=== PATIENT | male | born 1960 | race Caucasian/White ===

== ENCOUNTER 2017-06-19 10:03 | Emergency (ER) | payer BC, OTHER ==
--- NOTE | 2017-06-19 11:46 | UC ---
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, difficult to weight bear Employed by [email or web address] [place] - History of Current Complaint Chief Complaint: UCLowerExtremity Stated Complaint: LEG INJURY Time Seen by Provider: 06/19/17 11:38 Hx Obtained From: Patient Onset/Duration: Sudden Onset Severity Initially: Moderate Severity Currently: Moderate Pain Intensity: 6 Pain Scale Used: 0-10 Numeric Aggravating Factor(s): Standing, Ambulation Alleviating Factor(s): Rest, Elevation Able to Bear Weight: No Related History: Occupational Injury - Allergies/Home Medications Allergies/Adverse Reactions: Allergies Allergy/AdvReac Type Severity Reaction Status Date / Time No Known Allergies Allergy Verified 06/19/17 10:32 Home Medications: Home Medications Ascorbic Acid TAB* [Vitamin C TAB*] 06/19/17 [History] Multiple Vitamin [Multivitamins] 06/19/17 [History] Standard Process 06/19/17 [History] PMH/Surg Hx/FS Hx/Imm Hx Previously Healthy: No Endocrine History: Dyslipidemia - Surgical History Surgical History: Yes Surgery Procedure, Year, and Place: VISION REPAIR FOR DIPLOPIA, RESHAPED ORBIT. BLADDER SURGERY FOR STRICTURE - Family History Known Family History: Positive: Hypertension Negative: Diabetes - Social History Occupation: Employed Full-time Lives: With Family Alcohol Use: Occasionally Substance Use Type: None Smoking Status (MU): Never Smoked Tobacco - Immunization History Most Recent Influenza Vaccination: 2014 Most Recent Tetanus Shot: 2007 Most Recent Pneumonia Vaccination: 6 y/a approximately Review of Systems Constitutional: Negative Skin: Negative Eyes: Negative ENT: Negative Respiratory: Negative Cardiovascular: Negative Gastrointestinal: Negative Genitourinary: Negative Motor: Negative Neurovascular: Negative Musculoskeletal: Negative, Myalgia - upper left calf after alteracation Neurological: Negative Psychological: Negative Is Patient Immunocompromised?: No All Other Systems Reviewed And Are Negative: Yes Physical Exam Triage Information Reviewed: Yes Appearance: Well-Appearing, No Pain Distress, Well-Nourished Vital Signs: Initial Vital Signs Temp 98.1 F 06/19/17 10:34 Pulse 71 06/19/17 10:34 Resp 16 06/19/17 10:34 BP 155/88 06/19/17 10:34 Pulse Ox 98 06/19/17 10:34 Vital Signs Reviewed: Yes Eye Exam: Normal Eyes: Positive: Conjunctiva Clear ENT Exam: Normal ENT: Positive: Normal ENT inspection, Hearing grossly normal. Negative: Pharynx normal, Nasal congestion, Nasal drainage, TMs normal, Trismus, Muffled/ hoarse voice Dental Exam: Normal Neck exam: Normal Neck: Positive: Supple, Nontender, No Lymphadenopathy Respiratory Exam: Normal Respiratory: Positive: Chest non-tender, Lungs clear, Normal breath sounds, No respiratory distress, No accessory muscle use Cardiovascular Exam: Normal Cardiovascular: Positive: RRR, No Murmur, Pulses Normal, Brisk Capillary Refill Abdominal Exam: Normal Abdomen Description: Positive: Nontender, No Organomegaly, Soft. Negative: CVA Tenderness (R), CVA Tenderness (L) Musculoskeletal Exam: Normal Musculoskeletal: Positive: Strength Limited @ - left ;leg, Other: - no achellies pain Neurological Exam: Normal Neurological: Positive: Alert, Muscle Tone Normal Psychological Exam: Normal Psychological: Positive: Normal Response To Family Skin Exam: Normal Diagnostics - Radiology No standard instances Xray Interpretation: No Acute Changes Radiology Interpretation Completed By: Radiologist Lower Extremity Course/Dx - Course Course Of Treatment: Andres wrap rice crutches ibuprofen, elevate follow with ortho 4 days - Differential Dx/Diagnosis Differential Diagnosis/HQI/PQRI: Contusion, Fracture (Closed), Sprain, Strain Provider Diagnoses: high blood pressure without diagnosis of hypertension, left gastro. muscle strain Discharge - Discharge Plan Condition: Stable Disposition: HOME Patient Education Materials: Ibuprofen (By mouth), Crutch Instructions (ED), Muscle Strain (ED), Hypertension (ED), RICE Therapy (ED) Forms: *Work Release Referrals: Eduar Raymundo MD [Medical Doctor] - 4 Days
--- NOTE | 2017-06-19 12:39 | RAD ---
INDICATION: Left calf hematoma COMPARISON: None TECHNIQUE: Transverse and longitudinal scans of the left calf were performed utilizing grayscale and color Doppler imaging. FINDINGS: The soft tissue elements appear normal. There is no localized fluid collection. Specifically, there is no sonographic evidence of a localized hematoma. IMPRESSION: NEGATIVE EXAMINATION.
[2017-06-19 13:12] VITALS: BP 156/98
== END 2017-06-19 13:30 | disposition home or self-care (01) ==
LOC: UCEAST 10:03
DX: S86.912A Strain of unspecified muscle(s) and tendon(s) at lower leg level, left leg, initial encounter (principal); X58.XXXA Exposure to other specified factors, initial encounter; Y92.9 Unspecified place or not applicable; E78.5 Hyperlipidemia, unspecified; R03.0 Elevated blood-pressure reading, without diagnosis of hypertension
CPT/HCPCS: 99213; G0463

== ENCOUNTER 2017-11-13 21:19 | Emergency (ER) | payer BC, OTHER ==
[2017-11-13 21:32] VITALS: BP 130/85
[2017-11-13] MEDS ORDERED: Acetaminophen TAB* 325 MG ONE (21:41)
[2017-11-13] MEDS: Acetaminophen TAB* 325 MG PO ONE ×2 (21:45)
[2017-11-13] MEDS: Ibuprofen TAB* 400 MG PO ONE ×2 (21:45)
--- NOTE | 2017-11-13 21:57 | UC ---
HPI Febrile Illness - HPI Summary HPI Summary: 57 year old male with history of HLD here with fever and facial rash. Patient reports he has URI symptoms with high temperature and was seen by his PMD and started on tamiflu. He comes back today with right ear swelling, facial/scalp redness with vomiting. Rash is non-pruritic with mild pain. No change in vision. - History of Current Complaint Chief Complaint: UCRespiratory Time Seen by Provider: 11/13/17 21:38 Hx Obtained From: Patient, Family/Supervisor [employer] Onset/Duration: Started Days Ago Timing: Constant Initial Severity: Mild Current Severity: Moderate Pain Intensity: 7 Associated Signs and Symptoms: Cough, Vomiting - Additional Pertinent History Primary Care Physician: [id number] Current Antibiotics: No - Allergy/Home Medications Allergies/Adverse Reactions: Allergies Allergy/AdvReac Type Severity Reaction Status Date / Time grass pollen Allergy Severe SWELLING, Verified 11/13/17 21:32 DIFFICULTY BREATHING Home Medications: Home Medications Dm/P-Ephed/Acetaminoph/Doxylam [Meredith [place] Plus Severe 10-12.5-20-650 mg] 1 pow PO ONCE PRN 11/13/17 [History Confirmed 11/13/17] Oseltamivir CAP* [Tamiflu CAP*] 1 cap PO BID 11/13/17 [History Confirmed ] Vision Supplement* 11/13/17 [History] PMH/Surg Hx/FS Hx/Imm Hx Endocrine History: Dyslipidemia - Surgical History Surgical History: Yes Surgery Procedure, Year, and Place: VISION REPAIR FOR DIPLOPIA, RESHAPED ORBIT. BLADDER SURGERY FOR STRICTURE - Family History Known Family History: Positive: Hypertension Negative: Diabetes - Social History Alcohol Use: Weekly Alcohol Amount: 3 DRINKS/WEEK Substance Use Type: None Smoking Status (MU): Never Smoked Tobacco - Immunization History Most Recent Influenza Vaccination: 2014 Most Recent Tetanus Shot: 2007 Most Recent Pneumonia Vaccination: 6 y/a approximately Review of Systems Constitutional: Fever Skin: Rash ENT: Sinus Congestion Respiratory: Cough Gastrointestinal: Vomiting Is Patient Immunocompromised?: No All Other Systems Reviewed And Are Negative: Yes Physical Exam Triage Information Reviewed: Yes Appearance: Well-Appearing, No Pain Distress Vital Signs: Initial Vital Signs Temp 40.4 C 11/13/17 21:25 Pulse 133 11/13/17 21:25 Resp 18 11/13/17 21:25 BP 130/85 11/13/17 21:25 Pulse Ox 96 11/13/17 21:25 Vital Signs Reviewed: Yes ENT: Positive: Other - Right ear markedly swelling of the tragus two blisters. Negative: Trismus, Muffled voice Neck: Positive: Supple, Nontender, Other: - right submandibula LAD Respiratory: Positive: Normal breath sounds, No respiratory distress Abdominal Exam: Normal Abdomen Description: Positive: Nontender Skin: Positive: Other - right sided facial erythema, warm to touch Markedly swelling ear with blisters. Erythema does not cross midline but not characteristically dermatomal as it will cover C2 and V1-V3 of the right trigemenial nerve Course/Dx - Course Course Of Treatment: Tylenol and ibuprofen given here. Facial cellulitis vs. ? shingeles vs. cutaneous fungal. Instructed patient to go to the ED immediately. - Febrile Illness Differential Diagnoses: Abscess, Cellulitis, Medication Reaction, Sepsis - Diagnoses Clinic Provider Diagnoses: Fever - Provider Notifications Discussed Patient Care With: Dr. Thornton Time Discussed With Above Provider: 09:55 Instructed by Provider To: Transfer - Transferred to the ED via private care Discharge - Discharge Plan Condition: Good Disposition: TRANS HIGHER LVL OF CARE FAC Referrals: Ed Caballero MD [Primary Care Provider] - Additional Instructions: Please go to the ED as soon as possible.
== END 2017-11-13 21:52 | disposition short-term general hospital (02) ==
LOC: UCEAST 21:19
DX: R50.9 Fever, unspecified (principal); E78.5 Hyperlipidemia, unspecified
CPT/HCPCS: 99212; A9270-GY; G0463

== ENCOUNTER 2017-11-13 22:07 | Inpatient (IN) | payer BC ==
[2017-11-13] MEDS ORDERED: NS 0.9% 1000 ML* 1,000 ML IV ONE (22:20)
[2017-11-13] MEDS ORDERED: Clindamycin 600 MG IVPREMIX(* 600 MG/50 ML SDV IV ONE (22:54)
[2017-11-13] MEDS ORDERED: NS 0.9% 1000 ML*IV.FLUID IV ONE (22:54)
[2017-11-13] MEDS ORDERED: Cefepime 2 GM in Dextrose(*) 2 GM/50 ML BAG IV ONE (22:55)
[2017-11-13 23:00] LABS: ABS Basophils 0.1 10^3/ul (0-0.2); ABS Eosinophils 0 10^3/ul (0-0.6); ABS Lymphocytes 0.8 10^3/ul (1.0-4.8); ABS Monocytes 0.7 10^3/ul (0-0.8); ABS Neutrophils 12.5 10^3/ul (1.5-7.7); ABS Nucleated RBC 0 10^3/ul; Eosinophil % 0 % (0-6); Hematocrit 43 % (42-52); Hemoglobin 14.8 g/dl (14.0-18.0); Lymphocyte % 5.5 % (25-47); Mean Corpuscular HGB Conc 35 g/dl (31-36); Mean Corpuscular Hemoglobin 31 pg (27-31); Mean Corpuscular Volume 89 fL (80-94); Mean Platelet Volume 9 um3 (7.4-10.4); Nucleated Red Blood Cells % 0; Platelet Count 130 10^3/ul (150-450); Red Cell Distribution Width 13 % (10.5-15); White Blood Count 14.1 10^3/ul (3.5-10.8)
[2017-11-13 23:11] LABS: EGFR Non-African American 75.6 (>60)
[2017-11-13] MEDS ORDERED: Iohexol 300* (CONTRAST) 10 ML SDV IV ONE (23:46)
--- NOTE | 2017-11-14 01:26 | ED ---
Tonio Clarke Jennifer, scribed for Armando Thornton MD on 11/13/17 at 2253 . Influenza-Like Illness - HPI Summary HPI Summary: The pt is a 67 y/o male who presents to the ED with fever and redness in the facial area and right ear ache. The pt was started on Tamiflu yesterday. The symptoms were thought to be an allergic reaction to Tamiflu yesterday, but the pts reports he had these symptoms prior to taking Tamiflu. Pt is sweating , hot, and feverish. Pt additionally complains of vomiting and some shortness of breath. Denies cough, congestion, runny nose, chest pain, diarrhea. He also reports he had an abscess tooth pulled out one week ago and replaced with a bone graft. He reports there was pain and swelling in the location. - History of Current Complaint Chief Complaint: EDAllergicReaction Time Seen by Provider: 11/13/17 22:41 Hx Obtained From: Patient, Family/Manager Distribution - Onset/Duration: Sudden Onset, Lasting Days - one day, Still Present Severity: Moderate Associated Signs & Symptoms: Fever, Nasal Congestion, Vomiting - Allergy/Home Medications Allergies/Adverse Reactions: Allergies Allergy/AdvReac Type Severity Reaction Status Date / Time grass pollen Allergy Severe SWELLING, Verified 11/13/17 21:32 DIFFICULTY BREATHING PMH/Surg Hx/FS Hx/Imm Hx Endocrine/Hematology History: Denies: Hx Diabetes Cardiovascular History: Denies: Hx Hypertension, Hx Pacemaker/ICD Respiratory History: Denies: Hx Asthma Musculoskeletal History: Reports: Hx Back Problems Sensory History: Reports: Hx Contacts or Glasses Denies: Hx Hearing Aid Opthamlomology History: Reports: Hx Contacts or Glasses Psychiatric History: Denies: Hx Panic Disorder - Surgical History Surgery Procedure, Year, and Place: VISION REPAIR FOR DIPLOPIA, RESHAPED ORBIT. BLADDER SURGERY FOR STRICTURE Infectious Disease History: No Infectious Disease History: Reports: Hx Shingles Denies: Traveled Outside the [place] in Last 30 Days - Family History Known Family History: Positive: Hypertension Negative: Diabetes - Social History Alcohol Use: Weekly Alcohol Amount: 3 DRINKS/WEEK Substance Use Type: Reports: None Smoking Status (MU): Never Smoked Tobacco Review of Systems Positive: Fever, Skin Diaphoresis, Other - Hot ENT: Negative - Congestion, Other - Facial redness Positive: Dental Pain - Abscess tooth pulled out, Ear Ache - Right. Negative: Nasal Discharge Negative: Chest Pain Positive: Shortness Of Breath Positive: Vomiting. Negative: Diarrhea All Other Systems Reviewed And Are Negative: Yes Physical Exam - Summary Physical Exam Summary: Appearance: Uncomfortable appearing, no pain distress Skin: warm, dry, reflects adequate perfusion Head/face: Red and tender. Skin is hot and diaphoretic. Skin is very flushed in the back. Eyes: EOMI, ROLANDO ENT: Edema in the pinna of ear with bullae with clear fluid. Anterior canal is reddened, but rest of canal is normal. Mastoid tenderness and redness extends to the area. Abrasion on head. Swelling of gingiva. Neck: supple, non-tender. No adenopathy in neck. Respiratory: CTA, breath sounds present Cardiovascular: Tachycardic, regular rhythm, pulses symmetrical Abdomen: non-tender, soft Bowel: present Musculoskeletal: normal, strength/ROM intact Neuro: normal, sensory motor intact, A&Ox3 Triage Information Reviewed: Yes Vital Signs On Initial Exam: Initial Vitals Temp Pulse Resp BP Pulse Ox 103.5 F 125 20 114/73 95 11/13/17 22:11 11/13/17 22:11 11/13/17 22:11 11/13/17 22:11 11/13/17 22:11 Vital Signs Reviewed: Yes Diagnostics - Vital Signs Vital Signs Temp Pulse Resp BP Pulse Ox 11/13/17 22:11 103.5 F 125 20 114/73 95 - Laboratory Lab Results: Lab Results 11/13/17 11/13/17 11/13/17 Range/Units 22:35 22:35 22:35 WBC 14.1 H (3.5-10.8) 10^3/ul RBC 4.80 (4.0-5.4) 10^6/ul Hgb 14.8 (14.0-18.0) g/dl Hct 43 (42-52) % MCV 89 (80-94) fL MCH 31 (27-31) pg MCHC 35 (31-36) g/dl RDW 13 (10.5-15) % Plt Count 130 L (150-450) 10^3/ul MPV 9 (7.4-10.4) um3 Neut % (Auto) 88.8 H (38-83) % Lymph % (Auto) 5.5 L (25-47) % [place] % (Auto) 5.2 (0-7) % Eos % (Auto) 0 (0-6) % Baso % (Auto) 0.5 (0-2) % Absolute Neuts (auto) 12.5 H (1.5-7.7) 10^3/ul Absolute Lymphs (auto) 0.8 L (1.0-4.8) 10^3/ul Absolute Monos (auto) 0.7 (0-0.8) 10^3/ul Absolute Eos (auto) 0 (0-0.6) 10^3/ul Absolute Basos (auto) 0.1 (0-0.2) 10^3/ul Absolute Nucleated RBC 0 10^3/ul Nucleated RBC % 0 Sodium 131 L (133-145) mmol/L Potassium 3.4 L (3.5-5.0) mmol/L Chloride 100 L (101-111) mmol/L Carbon Dioxide 24 (22-32) mmol/L Anion Gap 7 (2-11) mmol/L BUN 18 (6-24) mg/dL Creatinine 1.01 (0.67-1.17) mg/dL Est GFR ( Amer) 97.2 (>60) Est GFR (Non-Af Amer) 75.6 (>60) BUN/Creatinine Ratio 17.8 (8-20) Glucose 148 H (70-100) mg/dL Lactic Acid 1.0 (0.5-2.0) mmol/L Calcium 9.6 (8.6-10.3) mg/dL Total Bilirubin 0.70 (0.2-1.0) mg/dL AST 28 (13-39) U/L ALT 24 (7-52) U/L Alkaline Phosphatase 29 L (34-104) U/L C-Reactive Protein 193.86 H (< 5.00) mg/L Total Protein 7.1 (6.4-8.9) g/dL Albumin 3.9 (3.2-5.2) g/dL Globulin 3.2 (2-4) g/dL Albumin/Globulin Ratio 1.2 (1-3) Influenza A (Rapid) (Negative) Influenza B (Rapid) (Negative) 11/13/17 Range/Units 22:41 WBC (3.5-10.8) 10^3/ul RBC (4.0-5.4) 10^6/ul Hgb (14.0-18.0) g/dl Hct (42-52) % MCV (80-94) fL MCH (27-31) pg MCHC (31-36) g/dl RDW (10.5-15) % Plt Count (150-450) 10^3/ul MPV (7.4-10.4) um3 Neut % (Auto) (38-83) % Lymph % (Auto) (25-47) % [place] % (Auto) (0-7) % Eos % (Auto) (0-6) % Baso % (Auto) (0-2) % Absolute Neuts (auto) (1.5-7.7) 10^3/ul Absolute Lymphs (auto) (1.0-4.8) 10^3/ul Absolute Monos (auto) (0-0.8) 10^3/ul Absolute Eos (auto) (0-0.6) 10^3/ul Absolute Basos (auto) (0-0.2) 10^3/ul Absolute Nucleated RBC 10^3/ul Nucleated RBC % Sodium (133-145) mmol/L Potassium (3.5-5.0) mmol/L Chloride (101-111) mmol/L Carbon Dioxide (22-32) mmol/L Anion Gap (2-11) mmol/L BUN (6-24) mg/dL Creatinine (0.67-1.17) mg/dL Est GFR ( Amer) (>60) Est GFR (Non-Af Amer) (>60) BUN/Creatinine Ratio (8-20) Glucose (70-100) mg/dL Lactic Acid (0.5-2.0) mmol/L Calcium (8.6-10.3) mg/dL Total Bilirubin (0.2-1.0) mg/dL AST (13-39) U/L ALT (7-52) U/L Alkaline Phosphatase (34-104) U/L C-Reactive Protein (< 5.00) mg/L Total Protein (6.4-8.9) g/dL Albumin (3.2-5.2) g/dL Globulin (2-4) g/dL Albumin/Globulin Ratio (1-3) Influenza A (Rapid) Negative (Negative) Influenza B (Rapid) Negative (Negative) Result Diagrams: 11/13/17 22:35 11/13/17 22:35 Lab Statement: Any lab studies that have been ordered have been reviewed, and results considered in the medical decision making process. - CT Maxillofacial CT CT Interpretation: Positive (See Comments) - Mild bilateral pre-septal cellulitis without post septal extension or abscess, worse on the right. Mild sinusitis. Dr. Thornton has reviewed this report. CT Interpretation Completed By: Radiologist Re-Evaluation - Re-Evaluation First Eval Re-Evaluation Time: 01:11 Change: Improved Comment: Pt is looking better. His fever is down. Flu Symptom Course/Dx - Course Course Of Treatment: pt with extensive facial and preseptal cellulitis confirmed on CT. Started double abx. WBC up, lactate non-elevated. Will require IV abx, admitted for further. No severe sepsis. D/W Hospitalist who will admit. - Diagnoses Provider Diagnoses: Facial cellulitis, Sepsis, Preseptal cellulitis Discharge - Discharge Plan Condition: Fair Disposition: ADMITTED TO [facility] Referrals: Ed Caballero MD [Primary Care Provider] - The documentation as recorded by the Tonio smith Jennifer accurately reflects the service I personally performed and the decisions made by Hillary suarez Kirk, MD.
[2017-11-14] MEDS ORDERED: Potassium Chlor TAB* 20 MEQ TAB.ER PO ONE (03:48)
--- NOTE | 2017-11-14 04:49 | HP ---
H&P (Free Text) History and Physical: PCP: Max Caballero MD Date/Time: 11/14/2017 0330 CC: facial rash HPI: Mr Thornton is a 57YO male developed "flu-like symptoms" on 11/12 of [place], light-headed/wooziness, & nausea. He was seen by his PCP, clinically diagnosed with influenza (no rapid test done), and started on oseltamivir. At that time, he recalls having a small R pre-auricular area of erythema. Yesterday AM he began having spread of the painless rash throughout the day to involve the entire R ear, forehead slightly crossing midline & R mid-face mostly sparing the eyelids. He had N/V x2 without black or bloody content, no F/C or sweats. There was some mild loose stools, again no black or bloody content. Blisters arose on the anti-helix of the R ear. ED evaluation is notable for a maxillofacial CT positive for facial cellulitis, otherwise reasonably unremarkable. WBCs 14k 88% neutrophils. CRP 193. Mild hypoNatremia & hypoKalemia. He was given cefepime & clindamycin IV in the ED. Of note, 1 week ago he had a L mandibular abscessed tooth extracted and bone graft placed. PMedHx HLD L herpes zoster ophthalmicus Ambulatory Orders Crestor 20 mg PO DAILY 01/18/16 [place]-3/Dha/Epa/Fish Oil [Fish Oil 1,000 mg Softgel] 1,000 mg PO DAILY 01/22/16 Ubidecarenone [Co Q-10] 200 mg PO DAILY 06/03/16 Ascorbic Acid TAB* [Vitamin C TAB*] 06/19/17 Dm/P-Ephed/Acetaminoph/Doxylam [Meredith [place] Plus Severe 10-12.5-20-650 mg] 1 pow PO ONCE PRN 11/13/17 Oseltamivir CAP* [Tamiflu CAP*] 1 cap PO BID 11/13/17 Vision Supplement* 11/13/17 Allergies grass pollen Allergy (Severe, Verified 11/13/17 21:32) SWELLING, DIFFICULTY BREATHING PSurgHx OU strabismus surgeries L mandibular abscessed tooth extraction & bone graft 1 week ago SocHx: no tobacco, alcohol, or recreational drugs; lives with his ; works as a teacher, full code status FamHx: Mother: passed of ? CA metastatic to brain; Father: passed of complications of Alzheimer's ROS: as above, otherwise reviewed and all were negative vitals: Vital Signs Temp 37.0 C 11/14/17 03:26 Pulse 66 11/14/17 03:26 Resp 15 11/14/17 03:26 BP 145/80 11/14/17 04:40 Pulse Ox 96 11/14/17 04:40 Intake & Output 11/13/17 11/13/17 11/14/17 11:59 23:59 11:59 Intake Total 1050 1999 Balance 1050 1999 Weight 95.254 kg Intake: IV Fluids 1050 1999 Constitutional: NAD, normally developed, white male HEENM: atraumatic; sclera/conjunctiva: anicteric/clear; hearing: intact; oropharynx: clear, mucosa moist Neck: soft tissue: non-tender; thyroid: normal Pulmonary: clear to auscultation bilaterally, good aeration, no accessory muscle use CV: RR/RR, normal S1S2, no carotid bruit, no jugular venous distention, 2+ B DP/ PT, no edema Abdominal: soft, non-distended, non-tender, no rebound/guarding/rigidity, normoactive bowel sounds, no hepatosplenomegaly or masses, no costovertebral angle tenderness Musculoskeletal: general: grossly intact, no tenderness to palpation Integumental: R non-tender non-vesicular facial erythema & edema involving the R ear which has intact serous bullae Psychiatric orientation: AA&O to PPS affect: calm mood: cooperative eye contact: good content: reliable responses: timely insight: good Testing: Lab Results 11/13/17 11/13/17 11/13/17 Range/Units 22:35 22:35 22:35 WBC 14.1 H (3.5-10.8) 10^3/ul RBC 4.80 (4.0-5.4) 10^6/ul Hgb 14.8 (14.0-18.0) g/dl Hct 43 (42-52) % MCV 89 (80-94) fL MCH 31 (27-31) pg MCHC 35 (31-36) g/dl RDW 13 (10.5-15) % Plt Count 130 L (150-450) 10^3/ul MPV 9 (7.4-10.4) um3 Neut % (Auto) 88.8 H (38-83) % Lymph % (Auto) 5.5 L (25-47) % [place] % (Auto) 5.2 (0-7) % Eos % (Auto) 0 (0-6) % Baso % (Auto) 0.5 (0-2) % Absolute Neuts (auto) 12.5 H (1.5-7.7) 10^3/ul Absolute Lymphs (auto) 0.8 L (1.0-4.8) 10^3/ul Absolute Monos (auto) 0.7 (0-0.8) 10^3/ul Absolute Eos (auto) 0 (0-0.6) 10^3/ul Absolute Basos (auto) 0.1 (0-0.2) 10^3/ul Absolute Nucleated RBC 0 10^3/ul Nucleated RBC % 0 Sodium 131 L (133-145) mmol/L Potassium 3.4 L (3.5-5.0) mmol/L Chloride 100 L (101-111) mmol/L Carbon Dioxide 24 (22-32) mmol/L Anion Gap 7 (2-11) mmol/L BUN 18 (6-24) mg/dL Creatinine 1.01 (0.67-1.17) mg/dL Est GFR ( Amer) 97.2 (>60) Est GFR (Non-Af Amer) 75.6 (>60) BUN/Creatinine Ratio 17.8 (8-20) Glucose 148 H (70-100) mg/dL Lactic Acid 1.0 (0.5-2.0) mmol/L Calcium 9.6 (8.6-10.3) mg/dL Total Bilirubin 0.70 (0.2-1.0) mg/dL AST 28 (13-39) U/L ALT 24 (7-52) U/L Alkaline Phosphatase 29 L (34-104) U/L C-Reactive Protein 193.86 H (< 5.00) mg/L Total Protein 7.1 (6.4-8.9) g/dL Albumin 3.9 (3.2-5.2) g/dL Globulin 3.2 (2-4) g/dL Albumin/Globulin Ratio 1.2 (1-3) Influenza A (Rapid) (Negative) Influenza B (Rapid) (Negative) 11/13/17 11/14/17 Range/Units 22:41 02:10 WBC (3.5-10.8) 10^3/ul RBC (4.0-5.4) 10^6/ul Hgb (14.0-18.0) g/dl Hct (42-52) % MCV (80-94) fL MCH (27-31) pg MCHC (31-36) g/dl RDW (10.5-15) % Plt Count (150-450) 10^3/ul MPV (7.4-10.4) um3 Neut % (Auto) (38-83) % Lymph % (Auto) (25-47) % [place] % (Auto) (0-7) % Eos % (Auto) (0-6) % Baso % (Auto) (0-2) % Absolute Neuts (auto) (1.5-7.7) 10^3/ul Absolute Lymphs (auto) (1.0-4.8) 10^3/ul Absolute Monos (auto) (0-0.8) 10^3/ul Absolute Eos (auto) (0-0.6) 10^3/ul Absolute Basos (auto) (0-0.2) 10^3/ul Absolute Nucleated RBC 10^3/ul Nucleated RBC % Sodium (133-145) mmol/L Potassium (3.5-5.0) mmol/L Chloride (101-111) mmol/L Carbon Dioxide (22-32) mmol/L Anion Gap (2-11) mmol/L BUN (6-24) mg/dL Creatinine (0.67-1.17) mg/dL Est GFR ( Amer) (>60) Est GFR (Non-Af Amer) (>60) BUN/Creatinine Ratio (8-20) Glucose (70-100) mg/dL Lactic Acid 0.9 (0.5-2.0) mmol/L Calcium (8.6-10.3) mg/dL Total Bilirubin (0.2-1.0) mg/dL AST (13-39) U/L ALT (7-52) U/L Alkaline Phosphatase (34-104) U/L C-Reactive Protein (< 5.00) mg/L Total Protein (6.4-8.9) g/dL Albumin (3.2-5.2) g/dL Globulin (2-4) g/dL Albumin/Globulin Ratio (1-3) Influenza A (Rapid) Negative (Negative) Influenza B (Rapid) Negative (Negative) CXT maxillofacial, personally reviewed: Mild bilateral pre-septal cellulitis without post-septal extension or abscess, worse on the right. Impression: 57M HX HLD & L zoster ophthalmicus presents with SIRS 2nd L facial erysipelas DIAGNOSIS & PLAN Primary SIRS (now resolved) 2nd L facial erysipelas, doubt extension from tooth extraction : continue IV clindamycin 600mg Q12H & IV cefepime 1g Q12H : consider ID consult in AM : blood CXs : supportive care Secondary HLD : continue rosuvastatin Admission Rational: inpatient for SIRS 2nd facial cellulitis requiring IVFs & IV ABX; inappropriate for outpatient setting DVTp: PABLO Code Status: full HCP:
[2017-11-14] MEDS ORDERED: CMCS: Melatonin (NF) 3 MG TAB PO PRN (05:27)
[2017-11-14] MEDS ORDERED: Clindamycin 600 MG IVPREMIX(* 600 MG/50 ML SDV IV SCH (06:00)
[2017-11-14] MEDS: Omeprazole CAP* 20 MG PO SCH (06:21)
[2017-11-14 06:31] LABS: ABS Basophils 0 10^3/ul (0-0.2); ABS Eosinophils 0 10^3/ul (0-0.6); ABS Lymphocytes 1.1 10^3/ul (1.0-4.8); ABS Monocytes 0.8 10^3/ul (0-0.8); ABS Neutrophils 10.4 10^3/ul (1.5-7.7); ABS Nucleated RBC 0 10^3/ul; Eosinophil % 0 % (0-6); Hematocrit 42 % (42-52); Hemoglobin 14.7 g/dl (14.0-18.0); Lymphocyte % 8.9 % (25-47); Mean Corpuscular HGB Conc 35 g/dl (31-36); Mean Corpuscular Hemoglobin 31 pg (27-31); Mean Corpuscular Volume 89 fL (80-94); Mean Platelet Volume 9 um3 (7.4-10.4); Nucleated Red Blood Cells % 0.1; Platelet Count 120 10^3/ul (150-450); Red Cell Distribution Width 14 % (10.5-15); White Blood Count 12.4 10^3/ul (3.5-10.8)
[2017-11-14 06:44] LABS: EGFR Non-African American 92.3 (>60)
--- NOTE | 2017-11-14 07:43 | RAD ---
HISTORY: Right facial cellulitis, mastoiditis, dental abscess COMPARISONS: August 03, 2016 TECHNIQUE: Multiple contiguous axial CT scans were obtained of the face with intravenous contrast, with coronal and sagittal multiplanar reformations. FINDINGS: BONES: There is no displaced fracture or dislocation. The orbital rim is intact. The zygomatic arch is intact. The pterygoid plates are intact. ORBITS: There is mild preseptal fat stranding bilaterally without post septal or intraconal extension. The globes are round. The optic nerves are symmetric. The extraocular musculature is normal. There is no post septal or intraconal inflammatory change. There is no retrobulbar hematoma. PARANASAL SINUSES: There is minimal mucosal thickening of the right maxillary sinus. There is an air-fluid level within a sphenoethmoidal air cell on the left. BRAIN AND SOFT TISSUE: Unremarkable. OTHER: Evaluation the dental structures is limited by streak artifact from dental amalgam. There is periapical lucency along the right anterior maxillary tooth, likely a bicuspid. IMPRESSION: 1. MILD PREORBITAL CELLULITIS WITHOUT POST SEPTAL OR INTRACONAL EXTENSION. 2. MILD SINUS MUCOSAL INFLAMMATORY DISEASE, WITH AN AIR-FLUID LEVEL IN A SPHENOETHMOIDAL AIR CELL. IN THE CORRECT CLINICAL SETTING, THIS MAY REPRESENT ACUTE SINUSITIS. 3. CARIOUS DISEASE. RECOMMEND CORRELATION WITH DEDICATED DENTAL IMAGING IN THE NONACUTE SETTING.
[2017-11-14] MEDS ORDERED: Cefepime(*) 1 GM in NS 0.9% 50 ML* 50 ML IVPB SCH (11:00)
[2017-11-14] MEDS: Clindamycin 600 MG IVPREMIX(* 600 MG/50 ML SDV IV SCH ×2 (12:43→20:15)
[2017-11-14] MEDS: Ondansetron INJ* 2 MG/ML VIAL IV PRN ×2 (12:50→12:53)
[2017-11-14] MEDS: Acetaminophen TAB* 325 MG PO PRN ×2 (12:53→20:14)
--- NOTE | 2017-11-14 15:43 | PN ---
Subjective Date of Service: 11/14/17 Interval History: Patient seen and examined at bedside. Denies chest discomfort, V/D. Reports intermittent fever, chills, shortness of breath when having nausea. He reports that his pain is improving. Denies history of cauliflower ear. He feels that the swelling near his right eye is improved. Family History: Unchanged from Admission Social History: Unchanged from Admission Past Medical History: Unchanged from Admission Objective Active Medications: Acetaminophen (Tylenol Tab*) 650 mg PO Q6H PRN Reason: FEVER/PAIN Clindamycin HCl/Dextrose (Cleocin 600 Mg Ivpremix(*) Sdv) 600 mg in 50 mls @ 100 mls/hr IV Q8H JOSE Melatonin (Melatonin (Nf)) 3 mg PO BEDTIME PRN; Protocol Reason: Sleep Omeprazole (Prilosec Cap*) 20 mg PO DAILY@0600 JOSE Ondansetron HCl (Zofran Inj*) 4 mg IV Q6H PRN Reason: NAUSEA Vital Signs - 8 hr 11/14/17 11/14/17 08:00 11:47 Temperature 99.9 F Pulse Rate 92 Respiratory 18 18 Rate Blood Pressure 131/77 (mmHg) O2 Sat by Pulse 99 Oximetry Oxygen Devices in Use Now: None Appearance: NAD, sitting up on the side of the bed Eyes: - - mild edema near right eye, erythema to right side of face around eye and nose Ears/Nose/Mouth/Throat: Mucous Membranes Moist Respiratory: Symmetrical Chest Expansion and Respiratory Effort, Clear to Auscultation Cardiovascular: NL Sounds; No Murmurs; No JVD, RRR Abdominal: NL Sounds; No Tenderness; No Distention Extremities: No Edema Neurological: Alert and Oriented x 3, NL Muscle Strength and Tone Lines/Tubes/Other Access: Clean, Dry and Intact Peripheral IV - site benign Nutrition: Taking PO's Result Diagrams: 11/14/17 06:06 11/14/17 06:06 Additional Lab and Data: Assess/Plan/Problems-Billing Assessment: Mr. Thornton is a 57 yo male with PMH significant for left zoster opthalmicus presented to the emergency room with complaints of flu like symptoms. - Patient Problems (1) Erysipelas Code(s): A46 - ERYSIPELAS SNOMED Code(s): 62367198 Comment: - With associated SIRs on admission, now resolved - Left face - Afebrile and leukocytosis improving - Blood cultures, pending - HSV and Herpes simplex PCP, pending - ID consult, appreciate input - Continue IV clindamycin and acyclovir (2) Zoster ophthalmicus Code(s): B02.30 - ZOSTER OCULAR DISEASE, UNSPECIFIED SNOMED Code(s): 39551105 Comment: History (3) Hyperlipidemia Code(s): E78.5 - HYPERLIPIDEMIA, UNSPECIFIED SNOMED Code(s): 18516093 Comment: - Continue lipitor. (4) DVT prophylaxis Code(s): RUK8404 - SNOMED Code(s): 818667678 Comment: - SQ heparin (5) Full code status Code(s): Z78.9 - OTHER SPECIFIED HEALTH STATUS SNOMED Code(s): 565393018 Status and Disposition: Inpatient. Discharge to home when medically stable.
[2017-11-14] MEDS: ACYCLOVIR IVPB SCH (17:52)
[2017-11-14] MEDS: NS 0.9% IVPB SCH (17:52)
--- NOTE | 2017-11-14 18:41 | CONS ---
CONSULTATION REPORT: DATE OF CONSULT: 11/14/17 REQUESTING PHYSICIAN: Dr. Null. CONSULTING SERVICE: Infectious Disease. REASON FOR CONSULTATION: Right face cellulitis. IMPRESSION: 1. Recent onset of nausea, vomiting, headache, subsequent fever and patchy right facial erythema, ed oscar extending to include a right preseptal cellulitis involving the right ear where there is more edita ma and some vesicles with clear fluid. Differential diagnosis includes bacterial infection, usual org anisms Strep. He did have a recent right mandible surgery, though it does not appear to be related t o that area of procedure either based on the spread or location of the erythema or the CT image. It could also be a viral infection, he had herpes zoster ophthalmicus over a year ago involving the righ t V1 distribution. So, this could be HSV or VZV given the splotchiness on the vesicles in the ear. I did not see any vesicles on the tympanic membrane and he does not have a facial droop to suggest Ra msay Rizo syndrome. 2. Obesity. RECOMMENDATION: Continue clindamycin. We will stop cefepime. We will add acyclovir. I unroofed on e of the vesicles and sent the fluid for HSV and VZV PCR. HISTORY OF PRESENT ILLNESS: This is a 57-year-old man with a history of varicella zoster involving t he right V1 dermatome. Now with fever and patchy right forehead, face, septal and ear erythema with tenderness symptoms, neuropathic pain and vesicles in the right ear. This has developed over the las t 3 days. Initially, he was treated with Tamiflu because of the nausea, headache and fever. He did not have much change. He had worsening fever, some more redness developed on the right forehead spre ad to the ear and he notes some fluids filled areas in the right ear or at least his did. He ca me to the hospital last night, started on cefepime and clindamycin. He had a fever of 103. He had a white count of 14,000. Today, he feels a little bit better. White count is 12 today, platelets are 120. He is still having some pain in the right face and ear and some swelling in the right eyelid, though he does not have any blurry vision or difficulty hearing or pain with opening or closing of hi s jaw. Over a week ago, he had extraction of the right mandible molar and had a bone graft placement , which he said has been caused many trouble. He has no pain, swelling or drainage in his mouth that he is aware. PAST MEDICAL HISTORY: 1. Herpes zoster ophthalmicus in 2016. 2. Hyperlipidemia. 3. Obesity. ALLERGIES: No known drug allergies. MEDICATIONS: 1. Cefepime 1 g every 12 hours. 2. Clindamycin 600 mg every 12, which will increase to every 8. 3. Melatonin. 4. Omeprazole. 5. Potassium. SOCIAL HISTORY: He lives in [place]. He is a teacher in [place]. He has no travel or sick contact s. He has a dog at home. FAMILY HISTORY: Mother with metastatic cancer. Father with Alzheimer's, unsure of age. REVIEW OF SYSTEMS: A 14-point of review of systems was negative except as noted above. PHYSICAL EXAM: Vital Signs: Temperature 37.7, heart rate 90, respiratory rate 18, blood pressure 13 1/77, oxygen saturation 99% on room air. In general, he is awake, not in distress. Neurologic: He is oriented x3, follows all commands. There is no facial droop. HEENT: There is no conjunctival he morrhage. There is mild orbital erythema, edema that extends down over the zygomatic arch along the mandible into the right ear where there are number of small vesicles on the outer pinna. Oropharynx without lesions. He is missing teeth upper and lower. There is no erythema or purulence. Neck: Conte pple without mass. Lymphadenopathy: There is no cervical, supraclavicular, inguinal, axillary, or e pitrochlear lymphadenopathy. Heart is regular rate and rhythm without murmurs, rubs, or gallops. Gutierrez gs: Clear to auscultation bilaterally. Abdomen: Soft, nontender, nondistended. There are bowel so unds present. Skin: There is no other rash or splinter hemorrhages. Musculoskeletal: There is no s pine tenderness to palpation. LABORATORY DATA: White blood cell count 12, hemoglobin 14, platelets 120. Creatinine is 0.8. CRP 20 0. Influenza PCR is negative. Please see impressions and recommendations outlined above, which I have discussed with Abida Bae NP Thank you for asking me to see Ms. Thornton in consultation. [id number]/[facility] #: [id number]
[2017-11-15] MEDS: ACYCLOVIR IVPB SCH ×3 (00:24→16:35)
[2017-11-15] MEDS: NS 0.9% IVPB SCH ×3 (00:24→16:35)
[2017-11-15] MEDS: Acetaminophen TAB* 325 MG PO PRN ×3 (02:43→23:20)
[2017-11-15] MEDS: Clindamycin 600 MG IVPREMIX(* 600 MG/50 ML SDV IV SCH ×3 (03:47→20:04)
[2017-11-15] MEDS: Omeprazole CAP* 20 MG PO SCH (05:59)
--- NOTE | 2017-11-15 14:54 | PN ---
Subjective Date of Service: 11/15/17 Interval History: Feels better today. Still some headache, mainly when he has a fever. Family History: Unchanged from Admission Social History: Unchanged from Admission Past Medical History: Unchanged from Admission Objective Active Medications: Acetaminophen (Tylenol Tab*) 650 mg PO Q6H PRN PRN Reason: FEVER/PAIN Last Admin: 11/15/17 09:53 Dose: 650 mg Clindamycin HCl/Dextrose (Cleocin 600 Mg Ivpremix(*) Sdv) 600 mg in 50 mls @ 100 mls/hr IV Q8H [facility] Last Admin: 11/15/17 12:42 Dose: 100 mls/hr Acyclovir Sodium 920 mg/ (Sodium Chloride) 268.4 mls @ 178.933 mls/hr IVPB Q8H [facility] Last Admin: 11/15/17 09:54 Dose: 178.933 mls/hr Ondansetron HCl (Zofran Inj*) 4 mg IV Q6H PRN PRN Reason: NAUSEA Last Admin: 11/14/17 12:50 Dose: 4 mg Vital Signs - 8 hr 11/15/17 11/15/17 11/15/17 07:49 08:00 08:14 Temperature 99.1 F 99.1 F Pulse Rate 91 91 Respiratory 12 18 12 Rate Blood Pressure 124/79 124/79 (mmHg) O2 Sat by Pulse 99 99 Oximetry 11/15/17 11:47 Temperature 98.4 F Pulse Rate 89 Respiratory 16 Rate Blood Pressure 118/65 (mmHg) O2 Sat by Pulse 96 Oximetry Oxygen Devices in Use Now: None Appearance: ALert, sitting on the edge of his bed. In good spirits. Looks comfortable. Eyes: No Scleral Icterus Respiratory: Symmetrical Chest Expansion and Respiratory Effort, Clear to Auscultation, Clear to Percussion Cardiovascular: NL Sounds; No Murmurs; No JVD, RRR, No Edema, - Extremities: No Edema, No Clubbing, Cyanosis, - Skin: No Nodules or Sclerosis, - - Entire R ear and surrounding skin bright red. Patchy red R face, patche L face, BL scalp. Neurological: Alert and Oriented x 3, NL Sensation Result Diagrams: 11/14/17 06:06 11/14/17 06:06 Additional Lab and Data: Assess/Plan/Problems-Billing Assessment: Mr. Thornton is a 57 yo male with PMH significant for left zoster opthalmicus presented to the emergency room with complaints of flu like symptoms. - Patient Problems (1) Erysipelas Current Visit: Yes Status: Acute Code(s): A46 - ERYSIPELAS SNOMED Code(s) : 78686249 Comment: - With associated SIRs on admission, now resolved BL face Still febrile early 11/15. Leukocytosis improving as of 11/14. - Blood cultures, pending - HSV and Herpes simplex PCR pending - ID consult, appreciate input - Continue IV clindamycin and acyclovir (2) Hyperlipidemia Current Visit: No Status: Chronic Code(s): E78.5 - HYPERLIPIDEMIA, UNSPECIFIED SNOMED Code(s): 84921158 Comment: - Continue lipitor. Status and Disposition: Inpatient. Discharge to home when medically stable.
[2017-11-15] MEDS: Atorvastatin* 40 MG TAB PO SCH (16:34)
[2017-11-16] MEDS: ACYCLOVIR IVPB SCH ×3 (00:57→17:29)
[2017-11-16] MEDS: NS 0.9% IVPB SCH ×3 (00:57→17:29)
[2017-11-16] MEDS: Clindamycin 600 MG IVPREMIX(* 600 MG/50 ML SDV IV SCH ×3 (04:05→19:43)
[2017-11-16] MEDS: Atorvastatin* 40 MG TAB PO SCH (09:28)
[2017-11-16] MEDS: Acetaminophen TAB* 325 MG PO PRN ×2 (09:28→23:17)
[2017-11-16] MEDS ORDERED: Magnesium Hydroxide LIQ* 30 ML UDC PO ONE (10:27)
--- NOTE | 2017-11-16 10:42 | PN ---
Subjective Date of Service: 11/16/17 Interval History: Feels well. No chills, sweats. Constipated. Appetite OK. Walked in [place] yesterday. Family History: Unchanged from Admission Social History: Unchanged from Admission Past Medical History: Unchanged from Admission Objective Active Medications: Acetaminophen (Tylenol Tab*) 650 mg PO Q6H PRN PRN Reason: FEVER/PAIN Last Admin: 11/16/17 09:28 Dose: 650 mg Atorvastatin Calcium (Lipitor*) 40 mg PO DAILY [facility] Last Admin: 11/16/17 09:28 Dose: 40 mg Clindamycin HCl/Dextrose (Cleocin 600 Mg Ivpremix(*) Sdv) 600 mg in 50 mls @ 100 mls/hr IV Q8H [facility] Last Admin: 11/16/17 04:05 Dose: 100 mls/hr Acyclovir Sodium 920 mg/ (Sodium Chloride) 268.4 mls @ 178.933 mls/hr IVPB Q8H [facility] Last Admin: 11/16/17 09:28 Dose: 178.933 mls/hr Magnesium Hydroxide (Milk Of Magnyashira Liq*) 60 ml PO ONCE ONE Stop: 11/16/17 10:28 Melatonin (Melatonin (Nf)) 3 mg PO BEDTIME [facility] Ondansetron HCl (Zofran Inj*) 4 mg IV Q6H PRN PRN Reason: NAUSEA Last Admin: 11/14/17 12:50 Dose: 4 mg Vital Signs - 8 hr 11/16/17 11/16/17 11/16/17 04:04 07:31 08:00 Temperature 98.8 F 98.4 F Pulse Rate 85 85 Respiratory 20 16 16 Rate Blood Pressure 131/81 138/89 (mmHg) O2 Sat by Pulse 96 97 Oximetry Oxygen Devices in Use Now: None Appearance: Alert, sitting up in bed. In good spirits. Looks comfortable. Eyes: No Scleral Icterus Extremities: No Edema, No Clubbing, Cyanosis Skin: No Nodules or Sclerosis, - - ? same area of erythema, not quite as intense a red. Small areas dias exudate R ear. Neurological: Alert and Oriented x 3, NL Sensation Result Diagrams: 11/14/17 06:06 11/14/17 06:06 Additional Lab and Data: Assess/Plan/Problems-Billing Assessment: Mr. Thornton is a 57 yo male with PMH significant for left zoster opthalmicus presented to the emergency room with complaints of flu like symptoms. - Patient Problems (1) Erysipelas Current Visit: Yes Status: Acute Code(s): A46 - ERYSIPELAS SNOMED Code(s) : 82464603 Comment: BL face Still febrile early 11/15. Leukocytosis improving as of 11/14. - Blood cultures no growth day 2. - HSV and Herpes simplex PCR pending. IgG and IgM AB ordered. T 101.5 2313 hrs 11/15. - Continue IV clindamycin and acyclovir. CBC, CRP 11/17. (2) Hyperlipidemia Current Visit: No Status: Chronic Code(s): E78.5 - HYPERLIPIDEMIA, UNSPECIFIED SNOMED Code(s): 28133254 Comment: - Continue lipitor. Status and Disposition: Inpatient. Discharge to home when medically stable.
[2017-11-16] MEDS ORDERED: CMCS: Melatonin (NF) 3 MG TAB PO SCH (21:00)
[2017-11-17] MEDS: ACYCLOVIR IVPB SCH (01:01)
[2017-11-17] MEDS: NS 0.9% IVPB SCH (01:01)
[2017-11-17] MEDS: Clindamycin 600 MG IVPREMIX(* 600 MG/50 ML SDV IV SCH (04:03)
[2017-11-17] MEDS: Acetaminophen TAB* 325 MG PO PRN (05:14)
[2017-11-17 06:18] LABS: Hematocrit 39 % (42-52); Hemoglobin 13.6 g/dl (14.0-18.0); Mean Corpuscular HGB Conc 35 g/dl (31-36); Mean Corpuscular Hemoglobin 31 pg (27-31); Mean Corpuscular Volume 89 fL (80-94); Mean Platelet Volume 8 um3 (7.4-10.4); Platelet Count 188 10^3/ul (150-450); Red Blood Count 4.39 10^6/ul (4.0-5.4); Red Cell Distribution Width 14 % (10.5-15); White Blood Count 6.8 10^3/ul (3.5-10.8)
[2017-11-17 06:44] LABS: ABS Basophils 0 10^3/ul (0-0.2); ABS Eosinophils 0.2 10^3/ul (0-0.6); ABS Lymphocytes 1.8 10^3/ul (1.0-4.8); ABS Monocytes 0.7 10^3/ul (0-0.8); ABS Nucleated RBC 0 10^3/ul; Eosinophil % 3.1 % (0-6); Lymphocyte % 26.5 % (25-47); Nucleated Red Blood Cells % 0
[2017-11-17 08:17] VITALS: BP 132/78
--- NOTE | 2017-11-17 08:50 | PN ---
Subjective Date of Service: 11/17/17 Interval History: Feels well, no new c/o, anxious to go home. Family History: Unchanged from Admission Social History: Unchanged from Admission Past Medical History: Unchanged from Admission Objective Active Medications: Acetaminophen (Tylenol Tab*) 650 mg PO Q6H PRN PRN Reason: FEVER/PAIN Last Admin: 11/17/17 05:14 Dose: 650 mg Atorvastatin Calcium (Lipitor*) 40 mg PO DAILY [facility] Last Admin: 11/16/17 09:28 Dose: 40 mg Clindamycin HCl/Dextrose (Cleocin 600 Mg Ivpremix(*) Sdv) 600 mg in 50 mls @ 100 mls/hr IV Q8H [facility] Last Admin: 11/17/17 04:03 Dose: 100 mls/hr Acyclovir Sodium 920 mg/ (Sodium Chloride) 268.4 mls @ 178.933 mls/hr IVPB Q8H [facility] Last Admin: 11/17/17 01:01 Dose: 178.933 mls/hr Melatonin (Melatonin (Nf)) 3 mg PO BEDTIME [facility] Last Admin: 11/16/17 21:06 Dose: 3 mg Ondansetron HCl (Zofran Inj*) 4 mg IV Q6H PRN PRN Reason: NAUSEA Last Admin: 11/14/17 12:50 Dose: 4 mg Vital Signs - 8 hr 11/17/17 11/17/17 03:34 08:16 Temperature 98.1 F 98.2 F Pulse Rate 66 71 Respiratory 16 16 Rate Blood Pressure 97/57 132/78 (mmHg) O2 Sat by Pulse 96 96 Oximetry Oxygen Devices in Use Now: None Appearance: Alert, sitting on the edge of his bed. In good spirits. Looks comfortable. Extremities: No Edema, No Clubbing, Cyanosis Skin: No Nodules or Sclerosis, - - Rash about 50% better, light red/light pink everywhere except about 50% R ear is deep red. Neurological: Alert and Oriented x 3, NL Sensation Result Diagrams: 11/17/17 06:03 11/14/17 06:06 Additional Lab and Data: Assess/Plan/Problems-Billing Assessment: Mr. Thornton is a 57 yo male with PMH significant for left zoster opthalmicus presented to the emergency room with complaints of flu like symptoms. - Patient Problems (1) Erysipelas Status: Acute Code(s): A46 - ERYSIPELAS SNOMED Code(s): 51841507 Comment: BL face Still febrile early 11/15. Leukocytosis improving as of 11/14. - Blood cultures no growth day 2. - HSV and Herpes simplex PCR pending. IgG and IgM AB ordered. Afebrile since 11/16 4 AM. CRP down to 44.62, WBC down to 6.8. - Continue IV clindamycin and acyclovir. CBC, CRP 11/17. (2) Hyperlipidemia Status: Chronic Code(s): E78.5 - HYPERLIPIDEMIA, UNSPECIFIED SNOMED Code(s) : 01785241 Comment: - Continue lipitor. Status and Disposition: Discharged to home 11/17/17.
[2017-11-17] MEDS ORDERED: Clindamycin CAP* 150 MG PO ONE (08:58)
--- NOTE | 2017-11-17 09:07 | PN ---
Progress Note - Progress Note Date of Service: 11/17/17 Note: Time spent on discharge [address] Samayoa.
[2017-11-17] MEDS: Atorvastatin* 40 MG TAB PO SCH (09:32)
--- NOTE | 2017-11-18 07:09 | DS ---
CC: Dr. Caballero DISCHARGE SUMMARY: DATE OF ADMISSION: DATE OF DISCHARGE: 11/17/17 HISTORY OF PRESENT ILLNESS: This 57-year-old man presented with facial rash. He had flu-like sympto ms on 11/12/17 with headache, ooziness. He was clinically diagnosed with influenza and began on osel tamivir. By that time, he developed erythema in his right ear. It was painless, but the rash spread involving entire external ear, forehead, crossing the midline, around the eyes sparing the eyelids a nd eyes themselves. There was some pustule formation. Dr. Samayoa saw the patient, he unroofed a blister and sent fluid for herpes simplex PCR and varicella zoster PCR. These results are pending at the time of this dict ation. The patient was treated with his intravenous clindamycin and intravenous acyclovir. He had excellent resolution by the time of his discharge about 50% decrease in the skin rash. His temperature abated. His white count fell to 6.8. His CRP fell over 75% down to about 45. The patient continued to fee l well. I noticed influenza rapid test was negative. He was not given anymore oseltamivir. FINAL DIAGNOSES: 1. Erysipelas; note, herpes simplex and varicella PCR are pending. 2. Hyperlipidemia. DISCHARGE MEDICATIONS: 1. Clindamycin 300 mg t.i.d. for 5 days. 2. Valacyclovir 1 g b.i.d., dispense 4. 3. Rosuvastatin 20 mg daily. 4. Fish oil as prescribed. 5. CoQ10 as prescribed. 6. Ascorbic acid as prescribed. 7. Meredith-Marleni Plus p.r.n. vision supplement as prescribed. [id number]/[facility] #: [id number]
== END 2017-11-17 10:45 | disposition home or self-care (01) | DRG 383 ==
LOC: ED 22:07 → MED 11-14 03:47
PROVIDERS: ADMIT Hospitalist; ATTEND Internal Medicine
DX: A46 Erysipelas (principal); E87.1 Hypo-osmolality and hyponatremia; R65.10 Systemic inflammatory response syndrome (SIRS) of non-infectious origin without acute organ dysfunction; L03.211 Cellulitis of face; H62.41 Otitis externa in other diseases classified elsewhere, right ear; E87.6 Hypokalemia; E78.5 Hyperlipidemia, unspecified; J30.1 Allergic rhinitis due to pollen; Z80.8 Family history of malignant neoplasm of other organs or systems; Z79.899 Other long term (current) drug therapy; E66.9 Obesity, unspecified; Z68.28 Body mass index [BMI] 28.0-28.9, adult
CPT/HCPCS: 36415; 70487; 80048; 80053; 83605; 85025; 86140; 86787; 87040; 87502; 87529; 87798; 99212; 99284; A9270-GY; G0463; J0133; J0692; J2405; Q9967

== ENCOUNTER 2018-07-08 07:20 | Day surgery (SDC) | payer BC ==
--- NOTE | 2018-07-01 19:11 | HP ---
CC: Dr. Caballero * ADMITTING HISTORY AND PHYSICAL: DATE OF ADMISSION: 07/08/18 ADMITTING DIAGNOSES: 1. Urethral strictures. 2. Bladder calculus. PLANNED PROCEDURE: Internal urethrotomy, cystoscopy, fragmentation and removal of bladder calculus. SURGEON: Dr. Rock. HISTORY OF PRESENT ILLNESS: Tk Thornton is a 58-year-old gentleman with a history of urethral strictures. He had undergone internal urethrotomy about 20 years ago and was recently evaluated and noted to have the current urethral strictures and also a 2 cm bladder calculus. PAST MEDICAL HISTORY: Significant for: 1. High cholesterol. 2. Urethral strictures. MEDICATIONS ON ADMISSION: Crestor 20 mg a day. ALLERGIES: No known drug allergies. REVIEW OF SYSTEMS: He is otherwise in excellent health. There is no history of diabetes mellitus or any other major systemic illness. PHYSICAL EXAMINATION GENERAL: Reveals a pleasant, middle-aged gentleman. VITAL SIGNS: Blood pressure is 132/80, pulse 72 per minute and regular, oxygen saturation 98% on room air. LUNGS: Clear bilaterally. CARDIOVASCULAR EXAM: Regular rate and rhythm. S1, S2. ABDOMEN: Soft without masses. IMPRESSION: A 58-year-old gentleman with recurrent urethral strictures and bladder calculus. PLAN: Internal urethrotomy and cystoscopy and fragmentation and removal of bladder calculus. [id number]/[facility] #: [id number] [facility]
[~2018-07-08 07:20] MED LIST: Buffered Lidocaine 0.9% SYRIN* 5 ML/SYR SYRINGE INTRADERM ONE; Famotidine IV* 10 MG/ML 2 ML (20 mg) IV ONE; Gentamicin ADULT (*) 160 MG in NS 0.9% 100 ML* 100 ML IVPB ONE
[2018-07-08] MEDS ORDERED: cefTRIAXone(*) 2 GM ADDV.VIAL IVPB ONE (07:46)
[2018-07-08] MEDS ORDERED: Famotidine IV* 10 MG/ML 2 ML (20 mg) ONE (07:46)
[2018-07-08] MEDS ORDERED: Buffered Lidocaine 0.9% SYRIN* 5 ML/SYR SYRINGE ONE (07:46)
[2018-07-08] MEDS ORDERED: Ketorolac INJ* 30 MG/ML 1 ML VIAL ONE (08:17)
[2018-07-08] MEDS ORDERED: Lidocaine 2% PF * 5 ML VIAL ONE (08:17)
[2018-07-08] MEDS ORDERED: Ondansetron INJ* 2 MG/ML VIAL ONE (08:17)
[2018-07-08] MEDS ORDERED: fentaNYL* 50 MCG/ML 2 ML VIAL (100 MCG VIAL) ONE ×2 (08:17→10:46)
[2018-07-08] MEDS ORDERED: Midazolam* 1 MG/ML 5 ML VIAL (5 MG) ONE (08:17)
[2018-07-08] MEDS ORDERED: Dexamethasone IV* 4 MG/ML 1 ML (4 MG) ONE (08:17)
[2018-07-08] MEDS ORDERED: Propofol* 10 MG/ML 20 ML BTL IV PUSH ONE ×2 (08:17→10:47)
[2018-07-08] MEDS ORDERED: EPHEDrine (Pressors)* 50 MG/ML VIAL ONE (09:34)
[2018-07-08] MEDS ORDERED: fentaNYL* 50 MCG/ML 2 ML VIAL (100 MCG VIAL) IV PRN (09:48)
[2018-07-08] MEDS ORDERED: oxyCODONE/Acetamin 5/325 MG* TAB PO PRN (09:48)
[2018-07-08] MEDS ORDERED: Naloxone* 0.4 MG/ML 1 ML VIAL IV PRN (09:48)
[2018-07-08] MEDS ORDERED: Ondansetron INJ* 2 MG/ML VIAL IV PRN (09:48)
[2018-07-08] MEDS ORDERED: KETAMINE HCL* 50 MG/ML 10 ML VIAL ONE (10:29)
[2018-07-08] MEDS ORDERED: Furosemide IV* 10 MG/ML 2 ML VIAL (20 MG) ONE (10:40)
[2018-07-08] MEDS ORDERED: Lidocaine 2% JELLY* 6 ML JELLY TOPICAL ONE (11:11)
[2018-07-08 11:47] VITALS: BP 147/81
--- NOTE | 2018-07-08 18:52 | OP ---
CC: Dr. Ed Caballero * DATE OF OPERATION: 07/08/18 - [facility] DATE OF : 56 SURGEON: Justen Rock MD ANESTHESIOLOGIST: Dr. Chowdary. ANESTHESIA: General. PRE-OP DIAGNOSES: 1. Urethral stricture. 2. Bladder calculus. POST-OP DIAGNOSES: 1. Urethral stricture. 2. Bladder calculus. OPERATIVE PROCEDURE: 1. Internal urethrotomy. 2. Fragmentation and removal of bladder calculus. INDICATIONS: Tk Thornton is a 58-year-old gentleman who was noted to have a urethral stricture as well as a bladder calculus. FINDINGS: 1. Stricture mid to proximal bulbar urethra (about 1.5 to 2 cm). 2. Approximately 2 cm bladder calculus. COMPLICATIONS: None. POSTOPERATIVE CONDITION: Stable. DESCRIPTION OF PROCEDURE: After induction of general anesthesia, the patient was placed in dorsal lithotomy position. Sequential compression devices were in place and functioning. Initial evaluation revealed stricture in the mid to proximal bulbar urethra. A guidewire was introduced and advanced into the bladder. An internal urethrotome was introduced and the stricture was incised at the 12 o'clock position. The stricture extended for about 1.5 to 2 cm. Care was taken not to do any incision of the stricture in the vicinity of the sphincter. Once this was done, a 25-Zambian scope could be introduced into the bladder easily and the bladder was examined. A 2 cm crescent-shaped calculus was noted, otherwise the bladder was unremarkable. Using the stone crushing forceps, the stone was fragmented and all of the fragments were irrigated out. A 24-Zambian Sanchez was placed for temporary bladder drainage. The patient tolerated the procedure satisfactorily and was transferred back to recovery area in stable condition. [id number]/[facility] #: [id number] [facility]
== END 2018-07-08 11:53 | disposition home or self-care (01) ==
LOC: OR 07:20
PROVIDERS: ATTEND Urology
DX: N35.912 Unspecified bulbous urethral stricture, male (principal); N21.0 Calculus in bladder; J30.89 Other allergic rhinitis; K21.9 Gastro-esophageal reflux disease without esophagitis; B02.30 Zoster ocular disease, unspecified
CPT/HCPCS: 82365; 88300; J0696; J1100; J1580; J1885; J1940; J2250; J2405; J2704; J3010

== ENCOUNTER 2021-10-15 05:38 | Observation (INO) ==
[2021-10-15] MEDS ORDERED: Famotidine IV 10 MG/ML 2 ml VIAL (20 mg) ONE (05:56)
[2021-10-15] MEDS ORDERED: ceFAZolin 2 GM PREMIX 2 GM/50 ML BAG ONE (05:56)
[2021-10-15] MEDS ORDERED: Dexamethasone IV 4 MG/ML VIAL 1 ml VIAL ONE (05:56)
[2021-10-15] MEDS ORDERED: Dexamethasone IV 4 MG/ML VIAL 1 ml VIAL IV SLOW PU ONE (06:00)
[2021-10-15] MEDS ORDERED: Famotidine IV 10 MG/ML 2 ml VIAL (20 mg) IV ONE (06:00)
[2021-10-15] MEDS ORDERED: Lactated Ringers 1000 ml BAG 1,000 ML IV SCH (06:00)
[2021-10-15] MEDS ORDERED: Buffered Lidocaine 1% SYRIN 1 ml INTRADERM ONE (06:00)
[2021-10-15] MEDS ORDERED: cefTRIAXone VIAL 1,000 MG VIAL ONE (06:58)
[2021-10-15] MEDS ORDERED: fentaNYL 100 mcg/2 ml 50 MCG/ML VIAL ONE ×2 (07:08→10:10)
[2021-10-15] MEDS ORDERED: Succinylcholine 200 mg VIAL 20 mg/ml 10 ml VIAL (200 mg) ONE (07:09)
[2021-10-15] MEDS ORDERED: Lidocaine 2% PF 5 ML VIAL ONE (07:09)
[2021-10-15] MEDS ORDERED: Remifentanil 2 MG VIAL ONE ×2 (07:09→10:08)
[2021-10-15] MEDS ORDERED: Midazolam 2 mg/2 ml VIAL 1 mg/ml 2 ml VIAL (2 mg) ONE ×2 (07:09→09:59)
[2021-10-15] MEDS ORDERED: Propofol 10 MG/ML 20 ML BTL ONE (07:09)
[2021-10-15] MEDS ORDERED: Propofol 2,000 MG/200 ML BTL ONE (07:23)
[2021-10-15] MEDS ORDERED: Rocuronium 50 mg VIAL 10 mg/ml 5 ml VIAL (50 mg) ONE (07:50)
[2021-10-15] MEDS ORDERED: EPHEDrine (Pressors) 50 MG/ML VIAL ONE ×2 (08:07→11:56)
[2021-10-15] MEDS ORDERED: Phenylephrine IV 10 MG/ML 1 ml VIAL ONE (08:15)
[2021-10-15] MEDS ORDERED: fentaNYL 100 mcg/2 ml 50 MCG/ML VIAL IV PRN (09:23)
[2021-10-15] MEDS ORDERED: Morphine 4 MG/ML VIAL (1 ml) IV PRN (09:23)
[2021-10-15] MEDS ORDERED: Prochlorperazine 5 mg/ml 2 ml VIAL (10 mg) IV PRN (09:23)
[2021-10-15] MEDS ORDERED: Naloxone 0.4 mg VIAL 0.4 mg/ml 1 ml VIAL IV PRN (09:23)
[2021-10-15] MEDS ORDERED: Acetaminophen IV 1 GM/100ML 100 ML IV ONE (09:23)
[2021-10-15] MEDS ORDERED: Propofol 10 mg/ml 100 ML BTL 0 ML ONE (11:04)
[2021-10-15] MEDS ORDERED: HYDROmorphone 0.5 MG/0.5 ML SYRINGE ONE (11:15)
[2021-10-15] MEDS ORDERED: Ondansetron 4 mg VIAL 2 MG/ML 2 ml VIAL ONE (11:31)
[2021-10-15] MEDS ORDERED: Magnesium Hydroxide LIQ 30 ML UDC PO PRN (13:34)
[2021-10-15] MEDS ORDERED: Ondansetron 4 mg VIAL 2 MG/ML 2 ml VIAL IV PRN (13:34)
[2021-10-15] MEDS ORDERED: HYDROcodone/ACETAMIN 5/325 mg TAB PO PRN (13:34)
[2021-10-16] MEDS: HYDROcodone/ACETAMIN 5/325 mg TAB PO PRN ×2 (04:04→09:16)
[2021-10-16] MEDS ORDERED: diPHENhydraMINE 25 mg TAB PO SCH (09:00)
[2021-10-16 11:29] VITALS: BP 110/59
[2021-10-16] MEDS ORDERED: Flu vaccine *QUAD* 2021-22* 0.5 ML SYRINGE IM ONE (14:00)
== END 2021-10-16 15:45 | disposition home or self-care (01) ==
LOC: SSU → INTOOBSV 05:38 → AA 05:38
PROVIDERS: ADMIT Neurological Surgery; ATTEND Neurological Surgery